=== PATIENT | female | born 1985 | race Caucasian/White ===

== ENCOUNTER → 2016-11-30 | Outpatient (CLI) | payer BC ==
--- NOTE | 2016-11-30 16:31 | US ---
EXAMINATION: Thyroid ultrasound HISTORY: Hypothyroidism COMPARISON: None TECHNIQUE: Grayscale and color Doppler images obtained of the thyroid gland. FINDINGS: The right thyroid lobe measures 3.8 x 1.4 x 1.2 cm and the left thyroid lobe measures 2.3 x 1.2 x 1.3 cm. The isthmus measures 4 mm. The thyroid echotexture is coarse and heterogeneous bilat erally without a defined nodule identified. Color Doppler flow appears normal to decreased. IMPRESSION: 1. Heterogeneous nonenlarged thyroid gland, this may be the sequela of a previous thyroiditis. 2. No definite defined nodule identified.
== END ==
LOC: MW.US 10:25
PROVIDERS: ATTEND Internal Medicine Endocrinology, Diabetes & Metabolism
DX: E03.8 Other specified hypothyroidism (principal)
CPT/HCPCS: 76536-26; 76536-50

== ENCOUNTER 2018-10-10 07:43 | Day surgery (SDC) | payer BC ==
[~2018-10-10 07:43] MED LIST: Sodium Chloride 0.9% 10 ML Syringe FLUSH PRN; Sodium Chloride 0.9% 2.5 ML Syringe FLUSH PRN
[2018-10-10] MEDS ORDERED: Lactated Ringers 1,000 ML IV SCH (08:00)
--- NOTE | 2018-10-10 08:33 | PCM.PREANE ---
Preanesthetic Assessment - Anesthesia/Transfusion/Family Hx Anesthesia History: Prior Anesthesia Without Reaction Other Type of Anesthesia Reaction Comment: wet tap for Epidural, failed blood patch, severe headache Family History of Anesthesia Reaction: No Transfusion History: No Prior Transfusion(s) - Review of Systems General: No Symptoms Pulmonary: No Symptoms Cardiovascular: No Symptoms Neurological: No Symptoms Other: Reports: None - Physical Assessment NPO Status Date: 10/09/18 Height: 1.6 m Weight: 88.451 kg ASA Class: 2 Mental Status: Alert & Oriented x3 Airway Class: Mallampati = 1 Dentition: Reports: Normal Dentition ROM/Head Extension: Full Lungs: Clear to Auscultation, Normal Respiratory Effort Cardiovascular: Regular Rate, Regular Rhythm - Allergies Allergies/Adverse Reactions: Allergies Allergy/AdvReac Type Severity Reaction Status Date / Time avocado Allergy Airway Verified 10/04/18 13:45 Tightness celery Allergy Airway Verified 10/04/18 13:45 Tightness cucumber Allergy Airway Verified 10/04/18 13:45 Tightness Latex, Natural Rubber Allergy Itching Verified 10/04/18 13:45 lettuce Allergy Airway Verified 10/04/18 13:45 Tightness orly Allergy Airway Verified 10/04/18 13:45 Tightness melon Allergy Itching Verified 10/04/18 13:45 bananas Allergy Airway Uncoded 10/04/18 13:45 Tightness carrots Allergy Airway Uncoded 10/04/18 13:45 Tightness - Blood Blood Available: No - Anesthesia Plan Pre-Op Medication Ordered: None - Acknowledgements Anesthesia Type Planned: General Anesthesia Pt an Appropriate Candidate for the Planned Anesthesia: Yes Alternatives and Risks of Anesthesia Discussed w Pt/Guardian: Yes Pt/Guardian Understands and Agrees with Anesthesia Plan: Yes Additional Comments: PMH: 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), also auto immune hepatitis, thyroid replacement, has had wheezing after URIs but no dx of asthma PLAN: GA-LMA PreAnesthesia Questionnaire HEENT History: Reports: Other (See Below) Other HEENT History: has lower permanent dental retainer Cardiovascular History: Reports: None Respiratory History: Reports: Bronchitis, Recurrent Other Respiratory History: uses an inhaler when she is sick (maybe 3x per year) Gastrointestinal History: Reports: Other (See Below) Other Gastrointestinal History: has Autoimmune Biliary Colangitis 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 Endocrine/Metabolic History: Reports: Hypothyroidism, Obesity/BMI 30+ Other Endocrine/Metabolic History: Hashimotos Hematologic History: Reports: None Immunologic History: Reports: None Oncologic (Cancer) History: Reports: None Dermatologic History: Reports: None - Past Surgical History Head Surgeries/Procedures: Reports: None HEENT Surgical History: Reports: Oral Surgery, Tonsillectomy Other HEENT Surgeries/Procedures: wisdom teeth GI Surgical History: Reports: Cholecystectomy, Other (See Below) Other GI Surgeries/Procedures: liver bx x2 Female Surgical History: Reports: None - SUBSTANCE USE Smoking Status *Q: Former Smoker Tobacco Use Within Last Twelve Months: No Recreational Drug Use History: No - HOME MEDS Home Medications: Home Meds Albuterol [Ventolin HFA] 1 puff INH ASDIRECTED PRN 10/04/18 [History] Citalopram Hydrobromide [Celexa] 10 mg PO DAILY 10/04/18 [History] Levothyroxine [Synthroid] 50 mcg PO DAILY 10/04/18 [History] - CURRENT (IN HOUSE) MEDS Current Meds: Current Medications Lactated Ringer's (Ringers, Lactated) 1,000 mls @ 125 mls/hr IV ASDIRECTED JUDY Sodium Chloride (Saline Flush) 10 ml FLUSH ASDIRECTED PRN PRN Reason: Keep Vein Open Sodium Chloride (Saline Flush) 2.5 ml FLUSH ASDIRECTED PRN PRN Reason: Keep Vein Open
[2018-10-10] MEDS ORDERED: diphenhydrAMINE 50 MG/ML SDV ONE (08:54)
[2018-10-10] MEDS ORDERED: Ondansetron 4 MG/2 ML SDV ONE (08:54)
[2018-10-10] MEDS ORDERED: Dexamethasone 4 MG/ML 5 ML MDV ONE (08:54)
[2018-10-10] MEDS ORDERED: Midazolam 1 MG/ML 2 ML SDV ONE (08:55)
[2018-10-10] MEDS ORDERED: fentaNYL 100 MCG/2 ML SDV ONE (08:55)
[2018-10-10] MEDS ORDERED: Rocuronium 10 MG/ML 10 ML Syringe ONE (08:55)
[2018-10-10] MEDS ORDERED: Phenylephrine/Normal Saline 100 MCG/ML 10 ML Syringe ONE (08:56)
[2018-10-10] MEDS ORDERED: Propofol 200 MG/20 ML SDV ONE (09:22)
[2018-10-10] MEDS ORDERED: Neostigmine Methylsulfate 1 MG/ML 5 ML Syringe ONE (09:53)
[2018-10-10] MEDS ORDERED: Glycopyrrolate 0.2 MG/ML SDV ONE ×3 (09:54)
[2018-10-10] MEDS ORDERED: Meperidine PF 25 MG/ML Syringe IVPUSH SCH (10:15)
--- NOTE | 2018-10-10 10:23 | PCM.OPNOTE ---
- General Post-Op/Procedure Note Date of Surgery/Procedure: 10/10/18 Operative Procedure(s): Hysteroscopy. directed endometrial biopsy x 2. D&C. thermal endometrial ablation Findings: normal appearing uterine cavity with right anterior and posterior left thickened endometrium Pre Op Diagnosis: menometrorrhagia Post-Op Diagnosis: Same Anesthesia Technique: General ET Tube Primary Surgeon: Marla Ruth Pathology: Directed endometrial biopsy x 2 Endometrial curretings Fluid Replacement, Intraop: 900 (fluid deficit 50 mL NS) EBL in mLs: 10 Complications: none known Condition: Good Free Text/Narrative:: Dictation [id number]
[2018-10-10] MEDS ORDERED: Ketorolac 30 MG/ML SDV IVPUSH ONE (11:01)
[2018-10-10] MEDS ORDERED: oxyCODONE 5 MG Tab PO ONE ×2 (11:25→12:42)
--- NOTE | 2018-10-10 11:32 | PCM.POSTAN ---
POST ANESTHESIA ASSESSMENT - MENTAL STATUS Mental Status: Alert, Oriented - RESPIRATORY Respiratory Status: Respiratory Rate WNL, Airway Patent, O2 Saturation Stable - CARDIOVASCULAR CV Status: Pulse Rate WNL, Blood Pressure Stable - GASTROINTESTINAL GI Status: No Symptoms - POST OP HYDRATION Hydration Status: Adequate & Stable
--- NOTE | 2018-10-10 13:07 | PCM48HPAN ---
Post Anesthesia Note - EVALUATION WITHIN 48HRS OF ANESTHETIC Vital Signs in Normal Range: Yes Patient Participated in Evaluation: Yes Respiratory Function Stable: Yes Airway Patent: Yes Cardiovascular Function Stable: Yes Hydration Status Stable: Yes Nausea and Vomiting Control Satisfactory: Yes Mental Status Recovered: Yes Resp Rate: 20
[2018-10-10 14:44] VITALS: BP 128/70
--- NOTE | 2018-10-10 15:14 | OR ---
SURGEON: Marla Ruth M.D. DATE OF PROCEDURE: 10/10/2018 PREOPERATIVE DIAGNOSIS: Menometrorrhagia. POSTOPERATIVE DIAGNOSIS: Menometrorrhagia. PROCEDURE: Operative hysteroscopy with directed endometrial biopsy x2, dilation and curettage of endometrium, thermal endometrial ablation. ANESTHESIA: General endotracheal anesthesia. ESTIMATED BLOOD LOSS: Less than 10 mL. FLUID REPLACEMENT: 900 mL of crystalloid. FLUID DEFICIT FROM HYSTEROSCOPY: 50 mL of normal saline. FINDINGS: Overall normal-appearing uterine cavity, areas of slight thickness of endometrium along the right anterior fundal region and left posterior, directed biopsies taken of these regions. DISPOSITION: The patient to PACU, stable. INDICATION FOR PROCEDURE: Vanesa is a 33-year-old female who has ongoing difficulties with menorrhagia. Endometrial biopsy is benign at this time. After discussing the options, she would like to proceed with surgical intervention with formal hysteroscopy and thermal endometrial ablation. Risks of the procedure have been discussed. Proper consent obtained. DESCRIPTION OF PROCEDURE: The patient was taken to the operating room, where she underwent general endotracheal anesthesia, was placed in modified dorsolithotomy position, was prepped and draped in the usual sterile fashion. SCDs to lower extremities. Bladder was drained. Time-out was performed. Speculum was introduced into vagina. Anterior lip of cervix was grasped with an Allis clamp. Cervix gently dilated to 8 mm. The hysteroscope was now introduced using normal saline as distention media and was able to visualize the uterine cavity. No polyps or myometrial lesions or leiomyomas were noted. Photographs taken. There was an area of thickness along the right fundal anterior and left posterior endometrium that were biopsied directly with hysteroscopic graspers. The hysteroscope was now removed. The gentle sharp curettage was performed. The cervix was now measured using Angelica measuring device and measured approximately 4 cm. The Angelica device was now prepped according to educational coordinator's protocol. The device was introduced in the uterine cavity, and the balloon was insufflated, arms opened, and the device was tested and found to be adequately positioned. Therefore, a complete thermal ablation process of 120 seconds was completed. At the completion of this, the balloon was deflated. The arms were retracted and the device was removed from the uterine cavity. The cervix was now closely inspected, found to be hemostatic. All instruments were removed from the vagina. Hemostasis remained evident. Sponge and instrument counts correct x2. The patient will go to PACU in stable condition. Specimens to Pathology. JACQUE / NAJMA /[id number]
== END 2018-10-10 14:40 | disposition home or self-care (01) ==
LOC: MW.SDS 07:43
PROVIDERS: ATTEND Obstetrics & Gynecology
DX: N92.1 Excessive and frequent menstruation with irregular cycle (principal); E66.9 Obesity, unspecified; Z68.34 Body mass index [BMI] 34.0-34.9, adult; E03.9 Hypothyroidism, unspecified; F41.9 Anxiety disorder, unspecified; Z87.891 Personal history of nicotine dependence; Z79.899 Other long term (current) drug therapy; Z79.890 Hormone replacement therapy; Z91.018 Allergy to other foods; Z91.040 Latex allergy status
CPT/HCPCS: 36415; 58563; 84703; 85027; A9270; J1100; J1200; J1885; J2250; J2370; J2405; J2704; J3010; J3490; J7120